=== PATIENT | male | born 1950 | race Caucasian/White ===

== ENCOUNTER 2019-10-27 08:23 | Day surgery (SDC) | payer MEDICARE, OTHER, SELFPAY ==
[2019-10-13 07:40] VITALS: BMI 25.4
[2019-10-27] VITALS (9 sets, daily range): BP systolic 129–146; BP diastolic 67–83; PULSE 66–90; RESP 10–16; TEMP 36.1–37.1; O2SAT 94–96; BMI 25.3
[2019-10-27] MEDS: LACTATED RINGERS 1,000 ML 100 ML IV ×2 (09:06→12:20)
--- NOTE | 2019-10-27 09:21 | PM.PREOP ---
Pre-operative Note Interval Note History & Physical reviewed/Exam performed by Physician: Yes Changes to H&P: No H&P completed within 30 days and has changed as indicated here:: see note from Livan
[2019-10-27] MEDS: CEFAZOLIN 2 GM/100 ML FROZ.PIGGY IV (09:53)
--- NOTE | 2019-10-27 10:19 | SUR.OPER ---
Supine on padded OR bed, head on pillow, arms secured on padded arm boards at <90 degrees abduction, legs uncrossed, safety belt at thigh, tape over blanket over lower legs.
[2019-10-27] MEDS: BUPIVACAINE 0.5% (PF) VIAL 30 ML INJ (10:55)
--- NOTE | 2019-10-27 12:08 | PM.OP.1 ---
Operative Date/Time/Diagnoses Date of procedure: 10/27/19 Time of procedure: 12:08 Pre-op diagnosis: Recurrent left inguinal hernia incarcerated chronic Post-op diagnosis: same (Indirect hernia containing colon adhesed to the sac) Procedure & Clinicians Procedure: Repair with plug and patch technique Same procedure as scheduled: Yes Indications: Symptomatic left inguinal hernia recurrence Surgeon: Claudio Perez Click Yes if Unassisted: Yes Anesthesia Type: General Operative Notes Findings: Sigmoid colon within the sac. Adhesions holding it there. Closure Type: primary Specimen(s): none sent Prosthetic devices, grafts, tissues, transplants, or devices: Mesh Estimated Blood Loss (mL): 25 Blood products transfused: none Procedure in detail: The patient was placed supine on the operating room table and underwent general LMA anesthesia. He was prepped and draped in the usual fashion. A transverse incision was made overlying the internal ring and carried down to the level of the external oblique. The external oblique was opened parallel with its fibers through the external ring. The cremaster was opened proximally and search made for an indirect sac. The contents of the hernia precluded elevating the cord structures at this point. I opened the sac and found that it contained colon. I pulled out of the scrotum and dissected adhesions from the sac to the colon. I was unable to reduce the colon into the peritoneal cavity. I transected the sac and the proximal part from surrounding structures. I then placed a pursestring of 2 0 silk closing the hernia sac completely. I over sewed distal to this with running 2 0 silk suture. The stump was allowed to retract. The cord structures were then elevated from the floor. I placed a small plug in the defect created by the hernia sac and tacked it into place with interrupted Ethibond suture.. The floor was examined and was found to be weakened. I a large lipoma of the cord from the cord structures and ligated it proximally. It was removed from the field.. A patch was placed across the floor and tacked at the pubic tubercle, the posterior lamella of the anterior rectus sheath, the ilioinguinal ligament, and superior lateral to the cord. . Sutures of 0 Tycron were used to secure the mesh. The external oblique was closed with a running 3 0 Polysorb. The subcu was closed with interrupted 3 0 Polysorb. The skin was closed with a running 4 0 Polysorb subcuticular stitch and Steri-Strips. Dressing was applied, the patient was awakened, and the patient was taken to the recovery area in good condition. Complications: none Post-operative Condition: stable Disposition: PACU Plan for aftercare: Follow-up in the office
[2019-10-27] MEDS: OXYCODONE/ACETAMINOPHEN 5/325 TABLET 1 TAB PO (13:34)
== END 2019-10-27 14:00 | disposition home or self-care (01) ==
PROVIDERS: PCP Physician Assistant Medical; Visit Provider Specialist
PROC: (CPT 49521; principal; 2019-10-27 09:45)
DX: K40.31 Unilateral inguinal hernia, with obstruction, without gangrene, recurrent (principal); I10 Essential (primary) hypertension; D17.6 Benign lipomatous neoplasm of spermatic cord; K56.51 Intestinal adhesions [bands], with partial obstruction
CPT/HCPCS: 49521; C1781; J0690; J1100; J2250; J2405; J2704; J3010